=== PATIENT | female | born 2000 | race African-American/Black ===

== ENCOUNTER 2020-12-24 02:25 | Emergency (ER) | payer SELFPAY ==
[~2020-12-24] VITALS: Ht 172.7 cm; Wt 104.0 kg
[2020-12-24] MEDS ORDERED: MAGNESIUM/ALUMINUM HYDROXIDE/SIMETHICONE 30ML UDC PO STA (03:20)
[2020-12-24] MEDS ORDERED: FAMOTIDINE 20MG/2ML VIAL IV STA (03:20)
[2020-12-24] MEDS ORDERED: SODIUM CHLORIDE 0.9% 1,000 ML IV ONE (03:30)
[2020-12-24 03:47] LABS: BASOPHILS % 0.6 % (0.0-2.0); EOSINOPHILS % 1.6 % (0.0-5.0); HEMATOCRIT. 37.6 % (36.0-48.0); LYMPHOCYTES % 45.3 % (20.0-50.0); MEAN CORPUSCULAR HEMOGLOBIN 27.7 pg (28.0-32.0); MEAN CORPUSCULAR VOLUME 86.6 fL (81.0-99.0); MEAN PLATELET VOLUME 8.4 fl (7.4-10.4); MONOCYTES % 8.9 % (2.0-8.0); NEUTROPHILS % 43.6 % (40.0-76.0); PLATELET 332 x1000/uL (130-400); RED BLOOD CELL COUNT 4.34 mill/uL (4.2-5.4); RED CELL DISTRIBUTION WIDTH 13.2 % (11.6-14.6)
[2020-12-24 03:52] LABS: CHLORIDE 107 mEq/L (98-107)
[2020-12-24 03:54] LABS: PROTHROMBIN TIME 10.5 sec (9.6-11.0)
[2020-12-24 05:00] LABS: CLARITY URINE CLEAR (CLEAR); COLOR URINE YELLOW (YELLOW); KETONES URINE NEGATIVE (NEGATIVE); LEUKOCYTE ESTERASE URINE 1+ (NEGATIVE); NITRITE URINE NEGATIVE (NEGATIVE); OCCULT BLOOD URINE NEGATIVE (NEGATIVE); PROTEIN URINE NEGATIVE (NEGATIVE); SPECIFIC GRAVITY URINE 1.018 (1.005-1.030); UROBILINOGEN URINE 0.2 E.U./dL (0.2-1.0)
[2020-12-24 05:16] LABS: HCG SCREEN NEGATIVE
[2020-12-24] MEDS ORDERED: KETOROLAC 15MG/ML VIAL IV ONE (06:00)
[2020-12-24] MEDS ORDERED: FAMO-135 MT (06:14)
[2020-12-24 06:30] VITALS: BP 107/59
== END 2020-12-24 06:40 | disposition home or self-care (01) ==
LOC: ER 02:25
DX: R10.13 Epigastric pain (principal); J02.9 Acute pharyngitis, unspecified
CPT/HCPCS: 36415; 80053; 81003; 81025; 83690; 84703; 85025; 85610; 96361; 96374; 99283; J3490; J7030; Z7610

== ENCOUNTER 2021-04-18 04:31 | Emergency (ER) | payer SELFPAY ==
[~2021-04-18] VITALS: Ht 172.7 cm; Wt 107.0 kg
[~2021-04-18 04:31] MED LIST: FAMO-135 MT
[2021-04-18 06:24] VITALS: BP 110/66
[2021-04-18] MEDS ORDERED: IBUP-2028 MT (06:30)
[2021-04-18] MEDS ORDERED: AZIT250T MT (06:39)
== END 2021-04-18 06:48 | disposition home or self-care (01) ==
LOC: ER 04:31
DX: R05 Cough (principal); Z20.822 Contact with and (suspected) exposure to COVID-19
CPT/HCPCS: 71045; 87426; 99284

== ENCOUNTER 2022-03-29 15:01 | Emergency (ER) | payer MEDICAID ==
[~2022-03-29] VITALS: Ht 172.7 cm; Wt 105.0 kg
[~2022-03-29 15:01] MED LIST changes: +AZIT250T MT; +IBUP-2028 MT
[2022-03-29] MEDS ORDERED: CEFTRIAXONE SODIUM 500 MG/VIAL IM ONE (16:45)
[2022-03-29] MEDS ORDERED: DOXYCYCLINE HYCLATE 100MG CAPSULE PO ONE (16:45)
[2022-03-29] MEDS ORDERED: EMTR1TAB11 MT (17:48)
[2022-03-29] MEDS ORDERED: DOLU50TA MT (17:48)
[2022-03-29] MEDS ORDERED: DOXY-326 MT (17:48)
[2022-03-29 18:47] LABS: HEPATITIS B SURFACE ANTIGEN NEGATIVE
[2022-03-29] MEDS ORDERED: DOXYCYCLINE HYCLATE 100MG CAPSULE PO NR (19:45)
[2022-03-29] MEDS ORDERED: CEFTRIAXONE SODIUM 500 MG/VIAL IM NR (19:45)
[2022-03-29 19:54] VITALS: BP 112/78
[2022-04-02 06:07] LABS: HIV SCREEN 4G Non Reactive (Non Reactive)
[2022-04-03 04:12] LABS: NEISSERIA GONORRHOEAE NAA Negative (Negative)
== END 2022-03-29 19:54 | disposition home or self-care (01) ==
LOC: ER 15:01
DX: T76.21XA Adult sexual abuse, suspected, initial encounter (principal); Z13.9 Encounter for screening, unspecified
CPT/HCPCS: 36415; 81025; 86705; 86709; 86803; 87340; 87389; 87491; 87591; 96372; 99283; J0696

== ENCOUNTER 2022-05-29 11:23 | Emergency (ER) | payer MEDICAID ==
[~2022-05-29] VITALS: Ht 175.3 cm; Wt 104.0 kg
[~2022-05-29 11:23] MED LIST changes: +DOLU50TA MT; +DOXY-326 MT; +EMTR1TAB11 MT
[2022-05-29 11:54] VITALS: BP 120/69
[2022-05-29] MEDS ORDERED: TETANUS, DIPHTHERIA, PERTUSSIS VAC/PF 0.5ML (>10YR OLD) IM ONE (14:15)
== END 2022-05-29 15:21 | disposition home or self-care (01) ==
LOC: ER 11:50
DX: S01.81XA Laceration without foreign body of other part of head, initial encounter (principal); W01.10XA Fall on same level from slipping, tripping and stumbling with subsequent striking against unspecified object, initial encounter; Y93.89 Activity, other specified; Y92.89 Other specified places as the place of occurrence of the external cause
CPT/HCPCS: 12001; 90471; 90715; 99283

== ENCOUNTER 2022-06-17 17:12 | Emergency (ER) | payer MEDICAID ==
[~2022-06-17] VITALS: Ht 172.7 cm; Wt 104.0 kg
[2022-06-17 17:35] VITALS: BP 120/69
== END 2022-06-17 20:42 | disposition home or self-care (01) ==
LOC: ER 17:12
DX: Z48.02 Encounter for removal of sutures (principal)
CPT/HCPCS: 99281